=== PATIENT | male | born 1970 | race Caucasian/White ===

== ENCOUNTER 2018-06-25 11:09 | Emergency (ER) | payer OTHER ==
[~2018-06-25] VITALS: Ht 190.5 cm; Wt 77.1 kg
[2018-06-25] MEDS ORDERED: LIDOCAINE 1% HCL (LOCAL ANESTH.) INJ 20ML MDV ONE (11:39)
[2018-06-25] MEDS ORDERED: LIDOCAINE 1% HCL (LOCAL ANESTH.) INJ 20ML MDV IJ ONE (11:45)
[2018-06-25 13:20] VITALS: BP 94/64
== END 2018-06-25 13:27 | disposition home or self-care (01) ==
LOC: ER 11:11
DX: S61.411A Laceration without foreign body of right hand, initial encounter (principal); W01.0XXA Fall on same level from slipping, tripping and stumbling without subsequent striking against object, initial encounter; Y93.89 Activity, other specified; Y99.0 Civilian activity done for income or pay; Y92.69 Other specified industrial and construction area as the place of occurrence of the external cause
CPT/HCPCS: 12002; 99283; J2001